=== PATIENT | male | born 1965 | race Two or more races ===

== ENCOUNTER 2019-02-03 10:33 | Inpatient (IN) | payer MEDICAID, OTHER ==
[~2019-02-03] VITALS: Ht 177.8 cm; Wt 106.2 kg
[2019-02-03] MEDS ORDERED: ASPirin 81 mg TAB PO ONE (11:30)
[2019-02-03 11:31] LABS: Basophils # (auto) 0.1 uL; Basophils % (auto) 0.6 % (0.0-2.0); Eosinophils # (auto) 0.1 uL; Eosinophils % (auto) 0.9 % (0.0-7.0); Hematocrit 52.8 % (41.0-53.0); Hemoglobin 17.5 g/dL (13.5-17.5); Lymphocytes # (auto) 2.1 uL; Lymphocytes % (auto) 24.3 % (10.0-50.0); Mean Corpuscular Hgb Conc. 33.2 g/dL (32.0-36.0); Mean Corpuscular Volume 84.3 fL (80.0-100.0); Monocytes # (auto) 0.8 uL; Monocytes % (auto) 8.5 % (0.0-12.0); Neutrophils # (auto) 5.8 uL; Neutrophils % (auto) 65.7 % (37.0-80.0); Nucleated Red Blood Cells % 0.1 %; Platelet Count (auto) 222 10^3/uL (140-450); Red Blood Cells 6.26 10^6/uL (4.5-5.90); Red Cell Distribution Width 15.5 % (11.8-14.3); White Blood Cell 8.8 10^3/uL (4.4-10.8)
[2019-02-03 11:50] LABS: Albumin 3.8 g/dL (3.4-5.0); Anion Gap 8 (5-15); Blood Urea Nitrogen 12 mg/dL (7-18); Calcium 9.1 mg/dL (8.5-10.1); Carbon Dioxide 27 mmol/L (21-32); Chloride 105 mmol/L (98-107); Glucose 92 mg/dL (74-106); Potassium 3.4 mmol/L (3.5-5.1); Sodium 140 mmol/L (136-145)
[2019-02-03 11:57] LABS: Alanine Aminotransferase 26 U/L (16-61); Alkaline Phosphatase 79 U/L (45-117); Aspartate Aminotransferase 20 U/L (15-37); BUN/Creatinine Ratio 8.1; Bilirubin, Total 0.5 mg/dL (0.2-1.0); GFR African American 63 mL/min; GFR Non-African American 52 mL/min; Total Protein 7.9 g/dL (6.4-8.2)
[2019-02-03] MEDS: NICARDIPINE 25MG/250ML BAG KIT 250 ML IV SCH ×2 (12:29→17:00)
[2019-02-03] MEDS ORDERED: ONDANSETRON HCL 4 MG/2 ML VIAL IV PRN (14:30)
[2019-02-03] MEDS ORDERED: MORPHINE SULF INJ 2 MG/ML SYRINGE 1ML IV PRN (14:30)
[2019-02-03] MEDS ORDERED: amLODIPine BESYLATE 5 MG TAB PO ONE (14:30)
[2019-02-03] MEDS ORDERED: NITROGLYCERIN 0.4 MG SL TAB SL PRN (14:30)
[2019-02-03] MEDS: HYDROcodone-ACET 5/325MG TAB PO PRN (14:53)
[2019-02-03 15:17] LABS: Cholesterol 263 mg/dL (< 200)
[2019-02-03 15:20] LABS: HDL Cholesterol 43 mg/dL (40-59); LDL Cholesterol 191 mg/dL (< 100); Triglycerides 74 mg/dL (< 150)
[2019-02-03] MEDS: LABETALOL HCL 5 MG/ML 4ML SYRINGE IV PRN (16:37)
--- NOTE | 2019-02-03 18:15 | NUR ---
PT ARRIVES UNIT VIA W/C. A/OX4. DENIED S/S ACUTE DISTRESS. DENIED CP/SOB/N/V/DIZZINESS AT THIS TIME. RIGHT SIDED WEAKNESS NOTED. TELE MONITOR #[id number]. HR 72 SR.ORIENTED PT TO ROOM AND MADE COMFORTABLE IN BED. BED AT LOWEST POSITION. CALL LIGHT AND BELONGINGS WITHIN REACH. WILL CONT TO MONITOR.
[2019-02-03 18:47] VITALS: BP 162/95
--- NOTE | 2019-02-03 20:35 | NUR ---
RECEIVE IN BED SKIN WARM DRY TO TOUCH WITH RT SIDE WEAKNESS SPEECH IS CLEAR
[2019-02-03 21:25] VITALS: BP 142/88
[2019-02-03] MEDS: ATORVASTATIN 20 MG TAB PO SCH (21:27)
[2019-02-04 04:59] VITALS: BP 165/101
[2019-02-04] MEDS: LABETALOL HCL 5 MG/ML 4ML SYRINGE IV PRN ×3 (05:02→22:08)
[2019-02-04] MEDS: HYDROcodone-ACET 5/325MG TAB PO PRN ×3 (05:26→22:16)
--- NOTE | 2019-02-04 05:50 | NUR ---
AMBULATE TO BATROOM WITH ASSISTANCE FOR BM SOCKS REMOVED BILATERAL SOLE OF FEET AND HEEL IS DRY AND CRACKED SAME LOTIONED AND CLEAN SOCKS APPLIED
[2019-02-04 06:44] LABS: Basophils # (auto) 0.1 uL; Basophils % (auto) 0.8 % (0.0-2.0); Eosinophils # (auto) 0.1 uL; Eosinophils % (auto) 1.5 % (0.0-7.0); Hematocrit 47.4 % (41.0-53.0); Lymphocytes # (auto) 2.3 uL; Lymphocytes % (auto) 27.3 % (10.0-50.0); Mean Corpuscular Hemoglobin 28.4 pg (28.0-32.0); Mean Corpuscular Hgb Conc. 33.8 g/dL (32.0-36.0); Mean Corpuscular Volume 83.9 fL (80.0-100.0); Monocytes # (auto) 0.8 uL; Monocytes % (auto) 9.9 % (0.0-12.0); Neutrophils # (auto) 5.1 uL; Neutrophils % (auto) 60.5 % (37.0-80.0); Nucleated Red Blood Cells % 0.1 %; Platelet Count (auto) 213 10^3/uL (140-450); Red Blood Cells 5.65 10^6/uL (4.5-5.90); Red Cell Distribution Width 15.9 % (11.8-14.3); White Blood Cell 8.4 10^3/uL (4.4-10.8)
[2019-02-04 07:07] LABS: BUN/Creatinine Ratio 12.6; Calcium 8.7 mg/dL (8.5-10.1); Potassium 3.5 mmol/L (3.5-5.1)
[2019-02-04 09:00] VITALS: BP 152/96
--- NOTE | 2019-02-04 09:59 | NUR ---
PT AMBULATING WITH PHYSICAL THERAPY STAFF. USING FWW FOR AMBULATION. TOLERATING THERAPY WELL.
[2019-02-04] MEDS: ASPirin 81 mg TAB PO SCH (10:37)
[2019-02-04] MEDS: amLODIPine BESYLATE 5 MG TAB PO SCH (10:37)
[2019-02-04] MEDS: MORPHINE SULF INJ 2 MG/ML SYRINGE 1ML IV PRN (10:38)
[2019-02-04 13:00] VITALS: BP 136/97
[2019-02-04 16:37] VITALS: BP 166/113
--- NOTE | 2019-02-04 20:30 | NUR ---
RECEIVE IN BED SKIN WARM AND DRY ENCOURAGE TO DO EXERCISE THAT WAS TAUGHT BY PT TODAY
[2019-02-04 22:06] VITALS: BP 161/95
[2019-02-04] MEDS: ATORVASTATIN 20 MG TAB PO SCH (22:06)
[2019-02-05] MEDS: LABETALOL HCL 5 MG/ML 4ML SYRINGE IV PRN ×2 (04:17→10:15)
[2019-02-05 05:05] LABS: Urine Bacteria NONE SEEN /hpf (None Seen); Urine Blood Negative /uL (Negative); Urine Specific Gravity 1.023 (1.001-1.035); Urine WBC 4 /hpf (0 - 3)
[2019-02-05 05:07] VITALS: BP 165/115
[2019-02-05] MEDS: HYDROcodone-ACET 5/325MG TAB PO PRN ×2 (05:39→14:28)
[2019-02-05] MEDS ORDERED: hydrALAZINE HCL 25 MG TAB PO PRN (06:30)
--- NOTE | 2019-02-05 08:00 | NUR ---
Morning note patient resting in bed with even and unlabored respirations, no distress noted. Instructed patient on POC, fall precautions and to call for assistance as needed. Patient verbalized understanding. Fall precautions in place with bed in lowest locked position with x2 side rails up and call light within reach. Will continue to monitor q1hr & PRN.
[2019-02-05 09:00] VITALS: BP 166/98
[2019-02-05] MEDS: MORPHINE SULF INJ 2 MG/ML SYRINGE 1ML IV PRN ×2 (10:07→20:17)
[2019-02-05] MEDS: ASPirin 81 mg TAB PO SCH (10:07)
[2019-02-05] MEDS: amLODIPine BESYLATE 5 MG TAB PO SCH (10:08)
--- NOTE | 2019-02-05 10:25 | NUR ---
Patient ambulated with physical therapy FWW used as assistive device. Patient tolerated well.
[2019-02-05 13:00] VITALS: BP 144/79
[2019-02-05] MEDS ORDERED: HCTZ 25 MG TAB PO ONE (13:00)
[2019-02-05] MEDS: hydrALAZINE HCL 25 MG TAB PO SCH ×2 (14:28→22:00)
[2019-02-05 17:00] VITALS: BP 150/95
--- NOTE | 2019-02-05 17:41 | NUR ---
IV removed/IV started IV removed from the LAC with clean technique, catheter intact. Dressing applied. Patient tolerated well, no trauma to site. 20G IV started to the RFA with clean technique. IV secured and IV education provided. Patient verbalized understanding. Bed returned to lowest locked position with x3 side rails up. Call light within reach. Will continue to monitor q1hr & PRN.
--- NOTE | 2019-02-05 18:43 | NUR ---
Closing note Patient resting in bed with even and unlabored respirations, no distress noted. Fall precautions in place with call light within reach.
--- NOTE | 2019-02-05 19:00 | NUR ---
OPENING NOTE Received report from day shift RN. Patient is A&O X's 4 with no s/s of distress and reports some right leg pain 7/10. Educated patient on pain management and pain medication/POC/ and to use call light when in need of assistance. Patient verbalized understanding. Will provide pain medication as ordered. Elevated patient's leg with pillows at this time. Bed is in lowest/locked position with side rails up X's 2 and call light is within reach of patient. Walker is at bedside. Will continue care.
--- NOTE | 2019-02-05 19:26 | NUR ---
Care endorsed to SMITHA Awad.
[2019-02-05] MEDS: ATORVASTATIN 20 MG TAB PO SCH (22:00)
[2019-02-05 22:01] VITALS: BP 138/83
[2019-02-06] MEDS: HYDROcodone-ACET 5/325MG TAB PO PRN ×3 (01:29→16:31)
[2019-02-06] MEDS: hydrALAZINE HCL 25 MG TAB PO SCH ×3 (05:14→21:51)
[2019-02-06 05:22] VITALS: BP 158/111
[2019-02-06] MEDS: MORPHINE SULF INJ 2 MG/ML SYRINGE 1ML IV PRN ×2 (05:23→21:52)
[2019-02-06 09:00] VITALS: BP 158/94
--- NOTE | 2019-02-06 09:17 | NUR ---
PT SEEN BY DR. BENAVIDES SHE SAID TO FOLLOW UP NEUROLOGY CONSULT. PT VERBALIZED TO GO FOR REHAB ON DISCHARGE.
[2019-02-06] MEDS: amLODIPine BESYLATE 5 MG TAB PO SCH (09:31)
[2019-02-06] MEDS: ASPirin 81 mg TAB PO SCH (09:32)
[2019-02-06] MEDS: HCTZ 25 MG TAB PO SCH (09:32)
--- NOTE | 2019-02-06 15:30 | NUR ---
DR. CONNELLY AT [facility] MADE AWARE OF THE NEUROLOGY CONSULT, PER DR. CONNELLY HE CANNOT ACCOMMODATE ALL THE CONSULTS.
[2019-02-06 17:00] VITALS: BP 139/89
--- NOTE | 2019-02-06 19:00 | NUR ---
OPENING NOTE Received report from day shift RN. Patient is A&O X's 4 with no s/s of distress and patient reports pain 7/10 to right leg. Educated patient on pain medication/management. Will provide pain medication as ordered. Patient found some relief to right leg when it was repositioned and elevated. Educated patient on POC and to use call light when in need of assistance. Patient verbalized understanding. Bed is in lowest/locked position with side rails up X's 2 and call light is within reach of patient. Walker is available at bedside for patient to use. Will continue care.
[2019-02-06] MEDS: ATORVASTATIN 20 MG TAB PO SCH (21:52)
[2019-02-06 21:57] VITALS: BP 141/76
[2019-02-07] MEDS: HYDROcodone-ACET 5/325MG TAB PO PRN ×2 (03:43→11:56)
[2019-02-07 04:54] VITALS: BP 151/97
[2019-02-07] MEDS: hydrALAZINE HCL 25 MG TAB PO SCH ×4 (05:23→21:43)
[2019-02-07 06:51] LABS: Potassium 4.4 mmol/L (3.5-5.1)
[2019-02-07 06:54] LABS: BUN/Creatinine Ratio 15.3; Calcium 9.9 mg/dL (8.5-10.1)
[2019-02-07] MEDS: MORPHINE SULF INJ 2 MG/ML SYRINGE 1ML IV PRN ×3 (08:13→21:40)
--- NOTE | 2019-02-07 08:40 | NUR ---
SPOKE WITH DR. CONNELLY PER DR. CONNELLY HE CANNOT SEE THE PT. WILL NOTIFY PRIMARY DOCTOR.
[2019-02-07 09:00] VITALS: BP 150/96
[2019-02-07] MEDS: ASPirin 81 mg TAB PO SCH (09:40)
[2019-02-07] MEDS: amLODIPine BESYLATE 5 MG TAB PO SCH (09:41)
[2019-02-07] MEDS: HCTZ 25 MG TAB PO SCH (09:41)
--- NOTE | 2019-02-07 09:45 | NUR ---
Dr. Golden made aware neurology is still pending, Dr. Andersen cannot see the pt.
[2019-02-07] MEDS ORDERED: METOPROLOL TARTRATE 25 MG TAB PO ONE (11:15)
--- NOTE | 2019-02-07 11:15 | NUR ---
PT SEEN BY DR. JULES RECEIVED ORDER TO CALL PHYSICAL THERAPY TO WALK THE PT.
--- NOTE | 2019-02-07 12:06 | NUR ---
NUTRITION ASSESSMENT NOTES Please refer to link notes of nutrition screen form filed under the intervention section of the plan of care for further details. Est. Needs: 1900 kcal to 2450 kcal (18-23 kcal/kgBW), 75 gms to 90 gms pro (1.0-1.2 gms/kgIBW: 75 kg). Will continue to monitor pertinent labs and reassess nutrient need prn Thank you. Addendum: 02/07/19 at [address] Amended: Links added.
[2019-02-07 13:00] VITALS: BP 151/76
[2019-02-07 17:00] VITALS: BP 135/83
[2019-02-07 20:00] VITALS: BP 140/84
[2019-02-07] MEDS: ATORVASTATIN 20 MG TAB PO SCH (21:44)
[2019-02-07] MEDS: METOPROLOL TARTRATE 25 MG TAB PO SCH (21:44)
[2019-02-07 21:57] VITALS: BP 119/84
[2019-02-08] MEDS: HYDROcodone-ACET 5/325MG TAB PO PRN ×3 (01:26→16:15)
[2019-02-08] MEDS: hydrALAZINE HCL 25 MG TAB PO SCH ×2 (05:38→13:37)
[2019-02-08 05:42] VITALS: BP 158/84
--- NOTE | 2019-02-08 06:58 | NUR ---
Closing notes endorsed care to day shift nurseAlban.
[2019-02-08 08:00] VITALS: BP 139/90
[2019-02-08 09:00] VITALS: BP_SYST 131; BP_SYST 139; BP_DIAS 88; BP_DIAS 90
[2019-02-08] MEDS: ASPirin 81 mg TAB PO SCH (09:16)
[2019-02-08] MEDS: METOPROLOL TARTRATE 25 MG TAB PO SCH (09:17)
[2019-02-08] MEDS: amLODIPine BESYLATE 5 MG TAB PO SCH (09:18)
[2019-02-08] MEDS ORDERED: AMLO10TA13 PO (11:10)
[2019-02-08] MEDS ORDERED: ATO40T PO (11:10)
[2019-02-08] MEDS ORDERED: ASPI-498 PO (11:10)
[2019-02-08] MEDS ORDERED: MET25T PO (11:11)
[2019-02-08] MEDS ORDERED: HYDR50TA15 PO (11:12)
[2019-02-08 13:00] VITALS: BP 131/85
[2019-02-08] MEDS: MORPHINE SULF INJ 2 MG/ML SYRINGE 1ML IV PRN (13:38)
[2019-02-08 14:39] VITALS: BP 131/85
--- NOTE | 2019-02-08 14:41 | NUR ---
assessment PAtient is a 53 year old male who is alert and oriented. Patient informed me yesterday that he resided with his sister Soledad prior to admission and was independent. Patient informed me he does not have a PCP or does not see any doctor. Patient has been admitted for CVA. Patient is having right side weakness. Patient will need a fww on discharge. Patient has been provided with fww and its at bedside. Patient informed me he has no money for his discharge prescriptions. Alban BONE has called [facility] to get a castillo for medications. Jacob Dorado from [facility] has seen patient for no insurance. Patient should qualify for [email or web address] if he supplies Jacob with needed documents. Today patient is stating that he will not be returning home with his sister. Swathi GEORGE has provided patient with homeless resources and offered patient homeless residential. Patient has refused homeless residential. Patient informed me he will make his own arrangements for residential. I informed patient he has a right to speak to a social worker school regarding all care. I informed patient he has a right to participate in any and all discharge planning. Patient does not have a POA and advanced directive. I have offered patient information on POA and advanced directives. I informed the patient the advantages and benefits of having an Advanced Directive. Patient verbalized understanding. Addendum: 02/08/19 at 1455 by Ching ROSSI Amended: Links added. Addendum: 02/08/19 at 1638 by Ching [place] SS per ss consult discharge planning and SNF placement Patient has no payer source for SNF. Patient will return home with family per patient re assessment. Patient has a ride that will be here at 5pm. Medications will be paid for by administration. Alban BONE notified. Addendum: 02/08/19 at 1650 by EDWARD FARR SS Received referral to psychologist social as pt is homeless although he informed Ching [place] pupil personnel worker I that he was living with his sister and recently moved to the area. Inquired as to where he had moved from. He hesitated and stated he really could not remember but he thought it was [place]. Pt states he would like to find a place where he could lay down and sleep. Pt was given a packet of the homeless residential and where the warming residential was located but he stated he could not stay there. It was not up to his standards. Pt did sign the homeless waiver.
--- NOTE | 2019-02-08 18:00 | NUR ---
PATIENT DISCHARGED HOME WITH FAMILY. TELEMETRY BOX REMOVED AND RETURNED TO TELEMETRY DEPARTMENT. ALL IV ACCESS DISCONTINUED. ALL PRESCRIPTIONS FILLED AT [facility] AND GIVEN TO PATIENT. ALL DISCHARGE INSTRUCTIONS GIVEN. ALL DISCHARGE PAPERWORK SIGNED.
== END 2019-02-08 18:00 | disposition home or self-care (01) | DRG 64 ==
LOC: ER 10:33 → TELE 10:34 → TELE-CENTR 18:20
PROVIDERS: ADMIT Internal Medicine; ATTEND Internal Medicine
DX: I63.9 Cerebral infarction, unspecified (principal); N17.0 Acute kidney failure with tubular necrosis; I16.9 Hypertensive crisis, unspecified; G81.91 Hemiplegia, unspecified affecting right dominant side; E66.9 Obesity, unspecified; E78.5 Hyperlipidemia, unspecified; I12.9 Hypertensive chronic kidney disease with stage 1 through stage 4 chronic kidney disease, or unspecified chronic kidney disease; N18.2 Chronic kidney disease, stage 2 (mild); Z79.82 Long term (current) use of aspirin; Z91.19 Patient's noncompliance with other medical treatment and regimen; Z79.899 Other long term (current) drug therapy; Z68.33 Body mass index [BMI] 33.0-33.9, adult
CPT/HCPCS: 36415; 70450; 70551; 80048; 80053; 80061; 81001; 83735; 84443; 84484; 85025; 93005; 93306; 93886; 96374; 97110; 97116; 97163; 97530; 99291; G0378; J3490